=== PATIENT | male | born 1960 | race Caucasian/White ===

== ENCOUNTER → 2016-06-11 | Outpatient (REF) | LOC: ZLAB.WCH 16:58 | DX: Z01.89 Encounter for other specified special examinations (principal) ==

== ENCOUNTER → 2019-10-04 | Outpatient (CLI) | payer BC ==
[2019-10-04 10:59] LABS: CALCIUM 9.4 mg/dL (8.4-10.2); CREATININE, serum 0.79 (0.66-1.25); POTASSIUM 4.7 mmol/L (3.4-5.0)
== END ==
LOC: COL.RAD 10:09
PROVIDERS: Physician Assistant
DX: M48.07 Spinal stenosis, lumbosacral region (principal); M48.061 Spinal stenosis, lumbar region without neurogenic claudication; M51.16 Intervertebral disc disorders with radiculopathy, lumbar region; M47.816 Spondylosis without myelopathy or radiculopathy, lumbar region; M19.90 Unspecified osteoarthritis, unspecified site; S32.009A Unspecified fracture of unspecified lumbar vertebra, initial encounter for closed fracture; R03.0 Elevated blood-pressure reading, without diagnosis of hypertension
CPT/HCPCS: A9585

== ENCOUNTER 2019-12-09 08:30 | Outpatient (RCR) | payer BC | END 2020-02-01 | LOC: WSC | DX: M48.061 Spinal stenosis, lumbar region without neurogenic claudication (principal) ==